=== PATIENT | female | born 1970 | race Caucasian/White ===

== ENCOUNTER 2020-05-31 23:42 | Inpatient (IN) ==
[2020-06-01] MEDS ORDERED: 0.9 % Sodium Chloride 1,000 ML IVC ONE ×2 (00:04→00:40)
[2020-06-01] MEDS ORDERED: Isovue-370 500 ML BOTTLE IVP ONE (00:05)
[2020-06-01] MEDS ORDERED: *HR* FentaNYL (PF) 100 MCG/2 ML VIAL IVP ONE (00:20)
[2020-06-01] MEDS ORDERED: Ondansetron 4 MG/2 ML VIAL IVP ONE (00:20)
[2020-06-01 00:23] LABS: Eosinophils # 0.2 K/mcL (0.0-0.6); Hematocrit 36.3 % (35.3-44.9); Hemoglobin 11.6 g/dL (11.5-15.4); Mean Corpuscular Hemoglobin 28.2 pg (28.0-33.3); Mean Corpuscular Volume 88.1 fL (83.0-100.0); Mean Platelet Volume 11.4 fL (9.4-12.4); Platelet Count 156 K/mcL (140-400); Red Blood Count 4.12 M/mcL (3.82-4.97); Red Cell Distribution Width 15.3 % (11.5-14.5); White Blood Count 10.2 K/mcL (4.3-11.1)
[2020-06-01 00:36] LABS: VBG HCO3 25 mEq/L (21-27); VBG PCO2 47 mmHg (41-51); VBG PH 7.34 pH Units (7.32-7.42); VBG PO2 45 mmHg (25-50)
[2020-06-01 00:39] LABS: BUN/Creatinine Ratio 16 (6-26); Blood Urea Nitrogen 55 mg/dL (6-20); Carbon Dioxide 23 mEq/L (23-29); Chloride 102 mEq/L (98-107); Potassium 3.8 mEq/L (3.5-5.1); Sodium 136 mEq/L (136-145)
[2020-06-01 00:40] LABS: Alanine Aminotransferase 18 Units/L (7-52); Albumin 3.5 g/dL (3.5-5.7); Alkaline Phosphatase 105 Units/L (34-104); Aspartate Amino Transferase 16 Units/L (13-39); Bilirubin,Direct 0.2 mg/dL (0.0-0.2); Bilirubin,Indirect 0.5 mg/dL (0.0-1.0); Bilirubin,Total 0.7 mg/dL (0.3-1.0); Calcium 9.4 mg/dL (8.6-10.3); Globulin 3.5 g/dL (2.4-3.5); Glucose 138 mg/dL (70-105); Lipase 20 Units/L (11-82); Magnesium 1.4 mg/dL (1.6-2.6); Osmolality,Calculated 299 (280-300); Phosphorous 2.1 mg/dL (2.7-4.5); Troponin I < 0.03 ng/mL (< 0.04); eGFR For African Americans 17 (> 60); eGFR For Non-African Americans 14 (> 60)
[2020-06-01 00:45] LABS: INR 1.3; Prothrombin Time 14.9 Seconds (9.4-12.1)
[2020-06-01 00:47] LABS: Activated Partial Thrombo Time 31.4 Seconds (26.0-36.0)
[2020-06-01 01:14] LABS: Lymphocytes # 1.4 K/mcL (0.6-4.6); Monocytes # 0.8 K/mcL (0.0-1.3); Neutrophils # 7.8 K/mcL (1.6-8.9)
[2020-06-01 01:15] LABS: Platelet Estimate Normal (Normal); Reactive Lymphocytes Present (Not Present)
[2020-06-01] MEDS ORDERED: cefTRIAXone 1,000 MG in Water for inj. (sterile) 10 ML IVP ONE (01:55)
[2020-06-01 02:30] LABS: Bacteria,Urine Few per hpf (None-Few); Bilirubin,Urine Negative (Negative); Blood,Urine Small (Negative); Calcium Oxalate Crystals,Urine Present; Clarity,Urine Turbid (Clear); Color,Urine Yellow (Yellow); Glucose,Urine (UA) Normal (Normal); Ketones,Urine Negative (Negative); Leukocyte Esterase,Urine Large (Negative); Nitrite,Urine Negative (Negative); Protein,Urine 200 mg/dL (Neg-Trace); Specific Gravity,Urine 1.023 (1.010-1.025); Squamous Epithelial Cell,Urine Few per hpf (None-Few); Urobilinogen,Urine Normal (Normal); WBC,Urine TNTC per hpf (0-3)
[2020-06-01] MEDS ORDERED: Acetaminophen 325 MG TABLET PO PRN ×2 (03:39→17:47)
[2020-06-01] MEDS ORDERED: *HR* Promethazine 25 MG/ML VIAL IVP PRN ×2 (03:39→17:47)
[2020-06-01] MEDS ORDERED: Naloxone 0.4 MG/ML INJ IVP PRN ×2 (03:39→17:47)
[2020-06-01] MEDS ORDERED: D5% in Water 1,000 ML IVC PRN ×2 (03:45→17:47)
[2020-06-01] MEDS ORDERED: Dextrose Gel 15 GM/37.5 ML TUBE PO PRN ×4 (03:45→17:47)
[2020-06-01] MEDS ORDERED: *HR* Dextrose 50 % in Water (Vial) 50 ML VIAL IVP PRN ×2 (03:45→17:47)
[2020-06-01] MEDS ORDERED: Potassium Phosphate 44 MEQ in 0.9 % Sodium Chloride 250 ML IVPB ONE (03:48)
[2020-06-01] MEDS ORDERED: *HR* HYDROmorphone (PF) 1 MG/ML SYRINGE IVP PRN ×2 (04:00→17:47)
[2020-06-01] MEDS: 0.9 % Sodium Chloride 1,000 ML IVC SCH ×2 (04:48→18:21)
[2020-06-01 05:14] LABS: Hematocrit 31.9 % (35.3-44.9); Hemoglobin 10.1 g/dL (11.5-15.4); Mean Corpuscular HGB Conc 31.7 g/dL (31.6-35.5); Mean Corpuscular Hemoglobin 28.1 pg (28.0-33.3); Mean Corpuscular Volume 88.6 fL (83.0-100.0); Mean Platelet Volume 11.6 fL (9.4-12.4); Platelet Count 141 K/mcL (140-400); Red Cell Distribution Width 15.4 % (11.5-14.5); White Blood Count 7.7 K/mcL (4.3-11.1)
[2020-06-01 05:27] LABS: INR 1.4; Prothrombin Time 15.5 Seconds (9.4-12.1)
[2020-06-01 05:31] LABS: Calcium 8.5 mg/dL (8.6-10.3); Magnesium 1.2 mg/dL (1.6-2.6); Potassium 3.6 mEq/L (3.5-5.1)
[2020-06-01 06:04] LABS: Eosinophils # 0.2 K/mcL (0.0-0.6); Lymphocytes # 0.8 K/mcL (0.6-4.6); Monocytes # 0.5 K/mcL (0.0-1.3); Neutrophils # 6.3 K/mcL (1.6-8.9)
[2020-06-01 06:05] LABS: Platelet Estimate Normal (Normal); Reactive Lymphocytes Present (Not Present)
[2020-06-01 07:41] LABS: Estimated Average Glucose 134 mg/dl; Hemoglobin A1C 6.3 %
[2020-06-01] MEDS: Insulin LISPRO 300 UNITS/3 ML VIAL SQ SCH ×3 (07:48→18:22)
[2020-06-01] MEDS ORDERED: Famotidine 20 MG/2 ML VIAL IVP ONE (13:31)
[2020-06-01] MEDS ORDERED: Metoclopramide 10 MG/2 ML VIAL IVP ONE (13:31)
[2020-06-01] MEDS ORDERED: Isovue-300 50ML VIAL ONE (16:07)
[2020-06-01] MEDS ORDERED: Dexamethasone 4 MG/ML VIAL ONE (16:09)
[2020-06-01] MEDS ORDERED: Lidocaine -MPF 2% 2 ML VIAL ONE (16:09)
[2020-06-01] MEDS ORDERED: Ondansetron 4 MG/2 ML VIAL ONE (16:09)
[2020-06-01] MEDS ORDERED: *HR* Propofol 200 MG/20 ML VIAL IVP ONE (16:09)
[2020-06-01] MEDS ORDERED: Metoclopramide 10 MG/2 ML VIAL ONE (16:13)
[2020-06-01] MEDS ORDERED: Famotidine 20 MG/2 ML VIAL ONE (16:13)
[2020-06-01] MEDS ORDERED: *HR* FentaNYL (PF) 100 MCG/2 ML VIAL ONE (16:19)
[2020-06-01] MEDS ORDERED: *HR* Vasopressin 20 UNIT/ML VIAL ONE (16:47)
[2020-06-01] MEDS ORDERED: 0.9 % Sodium Chloride 1,000 ML IVC SCH (17:47)
[2020-06-01] MEDS ORDERED: cefTRIAXone 2,000 MG in Water for inj. (sterile) 20 ML IVP SCH (18:00)
[2020-06-01 18:45] LABS: Acinetobacter baumannii by PCR Not Detected (Not Detect); Candida albicans by PCR Not Detected (Not Detect); Candida glabrata by PCR Not Detected (Not Detect); Candida krusei by PCR Not Detected (Not Detect); Candida parapsilosis by PCR Not Detected (Not Detect); Candida tropicalis by PCR Not Detected (Not Detect); Enterobacter cloacae Cmplx PCR Not Detected (Not Detect); Enterococcus by PCR Not Detected (Not Detect); Escherichia coli by PCR Not Detected (Not Detect); Klebsiella oxytoca by PCR Not Detected (Not Detect); Klebsiella pneumoniae by PCR DETECTED (Not Detect); Proteus by PCR Not Detected (Not Detect); Pseudomonas aeruginosa by PCR Not Detected (Not Detect); Serratia marcescens by PCR Not Detected (Not Detect); Staphylococcus aureus by PCR Not Detected (Not Detect); Staphylococcus by PCR Not Detected (Not Detect); Streptococcus agalactiae(B)PCR Not Detected (Not Detect); Streptococcus by PCR Not Detected (Not Detect); Streptococcus pneumoniae PCR Not Detected (Not Detect); Streptococcus pyogenes (A) PCR Not Detected (Not Detect); blaKPC Carbapenem-Resist Gene Not Detected (Not Detect)
[2020-06-02] MEDS: Piperacillin/Tazobactam 3.375 GM in 0.9 % Sodium Chloride Mini Bag 100 ML IVPB SCH ×4 (00:18→23:57)
[2020-06-02 04:53] LABS: Hemoglobin 9.8 g/dL (11.5-15.4); Mean Corpuscular HGB Conc 30.6 g/dL (31.6-35.5); Mean Corpuscular Volume 88.2 fL (83.0-100.0); Mean Platelet Volume 10.8 fL (9.4-12.4); Platelet Count 183 K/mcL (140-400); Red Blood Count 3.63 M/mcL (3.82-4.97); Red Cell Distribution Width 15.9 % (11.5-14.5); White Blood Count 7.1 K/mcL (4.3-11.1)
[2020-06-02 05:17] LABS: Potassium 4.6 mEq/L (3.5-5.1)
[2020-06-02] MEDS: Insulin LISPRO 300 UNITS/3 ML VIAL SQ SCH ×3 (08:16→15:33)
[2020-06-02] MEDS: carvediloL 6.25 MG TABLET PO SCH ×2 (09:34→16:45)
[2020-06-02] MEDS: Loratadine 10 MG TABLET PO SCH (09:34)
[2020-06-02] MEDS: allopurinoL 100 MG TABLET PO SCH (09:34)
[2020-06-02] MEDS: amLODIPine 5 MG TABLET PO SCH (09:34)
[2020-06-02 11:04] LABS: Magnesium 1.9 mg/dL (1.6-2.6)
[2020-06-02] MEDS: 0.9 % Sodium Chloride 1,000 ML IVC SCH ×2 (13:00→23:57)
[2020-06-02] MEDS: *HR* Heparin 5,000 UNIT/ML VIAL SQ SCH (16:45)
[2020-06-02] MEDS ORDERED: Melatonin 3 MG TABLET PO ONE (23:43)
[2020-06-03 03:21] LABS: Basophils # 0.1 K/mcL (0.0-0.2); Basophils % 0.5 %; Eosinophils # 0.1 K/mcL (0.0-0.6); Eosinophils % 0.6 %; Hematocrit 33.8 % (35.3-44.9); Hemoglobin 10.5 g/dL (11.5-15.4); Lymphocytes # 1.3 K/mcL (0.6-4.6); Lymphocytes % 13.8 %; Mean Corpuscular HGB Conc 31.1 g/dL (31.6-35.5); Mean Corpuscular Hemoglobin 27.3 pg (28.0-33.3); Mean Corpuscular Volume 87.8 fL (83.0-100.0); Mean Platelet Volume 10.5 fL (9.4-12.4); Monocytes # 1.2 K/mcL (0.0-1.3); Monocytes % 12.8 %; Neutrophils # 6.5 K/mcL (1.6-8.9); Platelet Count 233 K/mcL (140-400); Red Blood Count 3.85 M/mcL (3.82-4.97); Red Cell Distribution Width 16.4 % (11.5-14.5); Segmented Neutrophils % 69.3 %; White Blood Count 9.4 K/mcL (4.3-11.1)
[2020-06-03 03:39] LABS: Calcium 8.7 mg/dL (8.6-10.3); Magnesium 1.6 mg/dL (1.6-2.6); Phosphorous 2.1 mg/dL (2.7-4.5)
[2020-06-03] MEDS: allopurinoL 100 MG TABLET PO SCH (09:00)
[2020-06-03] MEDS: carvediloL 6.25 MG TABLET PO SCH ×2 (09:00→17:40)
[2020-06-03] MEDS: Loratadine 10 MG TABLET PO SCH (09:00)
[2020-06-03] MEDS: Piperacillin/Tazobactam 3.375 GM in 0.9 % Sodium Chloride Mini Bag 100 ML IVPB SCH (09:00)
[2020-06-03] MEDS: amLODIPine 5 MG TABLET PO SCH (09:00)
[2020-06-03] MEDS: *HR* Heparin 5,000 UNIT/ML VIAL SQ SCH ×2 (09:01→17:40)
[2020-06-03] MEDS: Insulin LISPRO 300 UNITS/3 ML VIAL SQ SCH ×3 (09:01→17:33)
[2020-06-03] MEDS ORDERED: cefTRIAXone 2,000 MG in Water for inj. (sterile) 20 ML IVP SCH (12:00)
[2020-06-03] MEDS: 0.9 % Sodium Chloride 1,000 ML IVC SCH (13:31)
[2020-06-04] MEDS: 0.9 % Sodium Chloride 1,000 ML IVC SCH (01:44)
[2020-06-04 02:57] LABS: Calcium 8.8 mg/dL (8.6-10.3); Magnesium 1.3 mg/dL (1.6-2.6); Phosphorous 3.2 mg/dL (2.7-4.5); Potassium 3.9 mEq/L (3.5-5.1)
[2020-06-04 07:06] VITALS: BP 142/88
[2020-06-04] MEDS: *HR* Heparin 5,000 UNIT/ML VIAL SQ SCH (07:07)
[2020-06-04] MEDS: amLODIPine 5 MG TABLET PO SCH (08:01)
[2020-06-04] MEDS: allopurinoL 100 MG TABLET PO SCH (08:01)
[2020-06-04] MEDS: carvediloL 6.25 MG TABLET PO SCH (08:01)
[2020-06-04] MEDS: Loratadine 10 MG TABLET PO SCH (08:02)
[2020-06-04] MEDS: Insulin LISPRO 300 UNITS/3 ML VIAL SQ SCH (08:02)
[2020-06-06] MEDS ORDERED: Ergocalciferol (VIT D2) 50,000 UNIT (1.25MG) CAP PO SCH (16:56)
== END 2020-06-04 13:22 | disposition home or self-care (01) | DRG 660 ==
LOC: 3BNU 23:42 → EMEROOARM 23:42 → SUATTDRO 06-01 02:30 → 3BNU 06-01 02:58
PROVIDERS: ADMIT Internal Medicine; ATTEND Internal Medicine